=== PATIENT | female | born 1955 | race Caucasian/White ===

== ENCOUNTER 2017-08-15 10:01 | Outpatient (CLI) | payer BC | END 2017-08-15 10:02 | disposition home or self-care (01) | LOC: BICMAMMO 10:01 | PROVIDERS: ATTEND Family Medicine | DX: Z12.31 Encounter for screening mammogram for malignant neoplasm of breast (principal); R92.1 Mammographic calcification found on diagnostic imaging of breast; Z80.3 Family history of malignant neoplasm of breast | CPT/HCPCS: 77063; 77067 ==

== ENCOUNTER 2017-09-14 08:06 | Outpatient (CLI) | payer BC | END 2017-09-14 08:07 | disposition home or self-care (01) | LOC: BICULT 08:06 | PROVIDERS: ATTEND Family Medicine | DX: R94.5 Abnormal results of liver function studies (principal) | CPT/HCPCS: 76705 ==

== ENCOUNTER 2018-08-17 10:06 | Outpatient (CLI) | payer BC ==
--- NOTE | 2018-08-17 10:38 | BD ---
DEXA BONE DENSITY EXAM: HISTORY: A 63-year-old postmenopausal female for screening. COMPARISON: 12/13/2012. FINDINGS: Lumbar Spine: BMD (g/cm2) L1 0.847 T-Score: -1.3 L2 0.820 T-Score: -1.9 L3 0.847 T-Score: -2.2 L4 1.007 T-Score: -0.5 L1-L4 0.882 T-Score: -1.5 Femoral Neck: 0.679 T-Score: -1.5 Total Femur: 0.857 T-Score: -0.7 Impression: Osteopenia. This patient has a 10-year WHO fracture risk of a major osteoporotic fracture of 8.4% an d of a hip fracture of 0.9%. When compared to the prior examination, the bone density of the spine h as decreased approximately 9.5%. POS: [facility]
--- NOTE | 2018-08-17 13:05 | MMO ---
Bilateral MAMMO Bilat Screen [facility]. CLINICAL HISTORY: Patient is 63 years old and is seen for screening. The patient has the following family history of breast cancer: sister, at age 42. The patient has no personal history of cancer. VIEWS: The views performed were: bilateral craniocaudal with tomosynthesis and bilateral mediolateral oblique with tomosynthesis. FILMS COMPARED: The present examination has been compared to prior imaging studies performed at [facility] on 07/01/2015, 07/05/2016, 07/15/2016 and 08/15/2017. MAMMOGRAM FINDINGS: There are scattered fibroglandular densities. There are no suspicious masses, suspicious calcifications, or new areas of architectural distortion. IMPRESSION: THERE IS NO MAMMOGRAPHIC EVIDENCE OF MALIGNANCY. A ROUTINE FOLLOW-UP MAMMOGRAM IN 1 YEAR IS RECOMMENDED. THE RESULTS OF THIS EXAM WERE SENT TO THE PATIENT. ACR BI-RADS Category 1 - Negative MAMMOGRAPHY NOTE: 1. A negative mammogram report should not delay a biopsy if a dominant of clinically suspicious mass is present. 2. Approximately 10% to 15% of breast cancers are not detected by mammography. 3. Adenosis and dense breasts may obscure an underlying neoplasm.
== END 2018-08-17 10:07 | disposition home or self-care (01) ==
LOC: BICMAMMO 10:06
PROVIDERS: ATTEND Family Medicine
DX: Z12.31 Encounter for screening mammogram for malignant neoplasm of breast (principal); M85.89 Other specified disorders of bone density and structure, multiple sites; Z80.3 Family history of malignant neoplasm of breast
CPT/HCPCS: 77063; 77067; 77080

== ENCOUNTER 2019-03-13 14:05 | Outpatient (CLI) | payer BC ==
--- NOTE | 2019-03-13 15:01 | RAD ---
5 VIEWS MANDIBLE: Date: 03/13/2019 INDICATION: History of mandibular jaw pain. FINDINGS: No acute fracture is evident. No overt periodontal disease is noted. Visualized paranasal sinuses are clear. No air fluid level is evident. IMPRESSION: No acute osseous abnormality. POS: [facility]
== END 2019-03-13 14:06 | disposition home or self-care (01) ==
LOC: BICRAD 14:05
PROVIDERS: ATTEND Family Medicine
DX: R68.84 Jaw pain (principal)
CPT/HCPCS: 70110

== ENCOUNTER 2019-04-01 12:30 | Outpatient (CLI) | payer BC ==
--- NOTE | 2019-04-01 13:29 | CT ---
POSTCONTRAST SOFT TISSUE NECK CT: HISTORY: Palpable nodule in the right face. COMPARISON: None. FINDINGS: Visually brain parenchyma is unremarkable. Bilateral ocular lenses are appropriately located. Both globes are intact. Retrobulbar fat is preserv ed. Symmetric attenuation of the optic nerves and ocular rectus muscles. Adequate aeration visualized paranasal sinuses and mastoid air cells. Aerodigestive tract appears to be patent. No obvious mucosal abnormality. Limited evaluation the oral cavity by dental amalgam artifact. Nonspecific calcification of the left palatine tonsil. Mild fullness of the left and right lingual tonsils. Symmetric attenuation of the paraspinal muscles. Symmetric attenuation of the submandibular and parotid glands. Hyperdense nodule in the right thyroid lobe measures 1.4 x 1.5 cm. Additional subcentimeter hypodensi ties are noted in the thyroid gland Grossly the great vessels of the neck are patent. Patchy groundglass opacities in the visualized lung apices. Unremarkable upper mediastinum. No evidence of lymphadenopathy by size criteria. At the level of palpable marker, no solid or cystic masses. No lymphadenopathy. IMPRESSION: 1. No obvious masses, lymphadenopathy at the level of palpable marker in the right face. 2. Enlargement hyperdense right thyroid nodule. Further evaluation with thyroid ultrasound is recomme nded. Transcribed Date/Time: 04/01/2019 1:34 PM
[2019-04-01] MEDS ORDERED: Iopamidol 370 76% 100 ML VIAL ONE (15:51)
== END 2019-04-01 12:31 | disposition home or self-care (01) ==
LOC: BICCT 12:30
PROVIDERS: ATTEND Family Medicine
DX: K11.8 Other diseases of salivary glands (principal); E04.1 Nontoxic single thyroid nodule
CPT/HCPCS: 70491; 82565; Q9967

== ENCOUNTER 2019-04-09 13:39 | Outpatient (CLI) | payer BC ==
--- NOTE | 2019-04-09 15:45 | ULT ---
EXAM: THYROID ULTRASOUND: 04/09/19 HISTORY: Thyroid nodule. COMPARISON: None. CORRELATION: Soft tissue neck CT, 04/01/19. FINDINGS: Thyroid isthmus measures 0.4 cm. Right thyroid lobe measures 2.5 x 2.0 x 4.1 cm. Left thyroid lobe measures 1.2 x 1.5 x 4.2 cm. Thyroid nodules: There is a solid nodule in the right thyroid lobe measuring 2.0 x 1.9 x 1.8 cm. There is a second hyp oechoic nodule measuring 0.5 x 0.3 x 0.6 cm. There is a third hypoechoic nodule measuring 0.4 x 0.5 x 0.3 cm. Left thyroid lobe: There is an ill-defined solid nodule measuring 1.1 x 0.9 x 0.9 cm. IMPRESSION: Multiple solid nodules in the right and left thyroid lobes. TI-RADS level: TR4: moderately suspicious. Fine needle aspiration of the dominant solid nodule in the right thyroid lobe is recommended. POS: [facility]
== END 2019-04-09 13:40 | disposition home or self-care (01) ==
LOC: BICULT 13:39
PROVIDERS: ATTEND Otolaryngology Otolaryngic Allergy
DX: E04.2 Nontoxic multinodular goiter (principal)
CPT/HCPCS: 76536

== ENCOUNTER 2019-08-20 09:23 | Outpatient (CLI) | payer BC ==
--- NOTE | 2019-08-20 10:32 | MMO ---
Bilateral MAMMO Bilat Screen [facility]. CLINICAL HISTORY: Patient is 64 years old and is seen for screening. The patient has the following family history of breast cancer: sister, at age 42. The patient has no personal history of cancer. VIEWS: The views performed were: bilateral craniocaudal with tomosynthesis and bilateral mediolateral oblique with tomosynthesis. FILMS COMPARED: The present examination has been compared to prior imaging studies performed at [facility] on 07/05/2016, 07/15/2016, 08/15/2017 and 08/17/2018. This study has been interpreted with the assistance of computer-aided detection. MAMMOGRAM FINDINGS: There are scattered fibroglandular densities. There are benign appearing calcifications seen in both breasts. There are benign scattered densities in both breasts. There are no suspicious masses, suspicious calcifications, or new areas of architectural distortion. IMPRESSION: THERE IS NO MAMMOGRAPHIC EVIDENCE OF MALIGNANCY. A ROUTINE FOLLOW-UP MAMMOGRAM IN 1 YEAR IS RECOMMENDED. THE RESULTS OF THIS EXAM WERE SENT TO THE PATIENT. ACR BI-RADS Category 2 - Benign finding MAMMOGRAPHY NOTE: 1. A negative mammogram report should not delay a biopsy if a dominant of clinically suspicious mass is present. 2. Approximately 10% to 15% of breast cancers are not detected by mammography. 3. Adenosis and dense breasts may obscure an underlying neoplasm. Reported by: ROLDAN VALENTE MD Electonically Signed: [id number]
== END 2019-08-20 09:24 | disposition home or self-care (01) ==
LOC: BICMAMMO 09:23
PROVIDERS: ATTEND Family Medicine
DX: Z12.31 Encounter for screening mammogram for malignant neoplasm of breast (principal); Z80.3 Family history of malignant neoplasm of breast
CPT/HCPCS: 77063; 77067

== ENCOUNTER 2020-03-12 13:42 | Outpatient (CLI) | payer BC ==
--- NOTE | 2020-03-12 14:29 | MMO ---
Left Breast MAMMO Unilat Diag [facility]. CLINICAL HISTORY: Patient is 65 years old and is seen for diagnostic exam,lump or thickening in the sub-areolar region of the left breast and nipple abnormality in the left breast. The patient has the following family history of breast cancer: sister, at age 42. The patient has no personal history of cancer. VIEWS: The views performed were: left craniocaudal with tomosynthesis; left mediolateral oblique with tomosynthesis; and left mediolateral with tomosynthesis. FILMS COMPARED: The present examination has been compared to prior imaging studies performed at [facility] on 08/15/2017, 08/17/2018, 08/20/2019 and 03/12/2020. This study has been interpreted with the assistance of computer-aided detection. MAMMOGRAM FINDINGS: There are scattered fibroglandular densities. Finding 1: There are stable benign appearing calcifications seen in the left breast. Finding 2: There are no mammographic or sonographic abnormalities in the area of palpable concern. The patient is referred back to her clinician. Negative imaging findings should not preclude biopsy if clinical findings are suspicious. IMPRESSION: FINDING 2: THERE ARE NO MAMMOGRAPHIC ABNORMALITIES IN THE AREA OF PALPABLE CONCERN. THE PATIENT IS REFERRED BACK TO HER CLINICIAN. NEGATIVE IMAGING FINDINGS SHOULD NOT PRECLUDE BIOPSY IF CLINICAL FINDINGS ARE SUSPICIOUS. A ROUTINE FOLLOW-UP MAMMOGRAM IN 1 YEAR IS RECOMMENDED. THE RESULTS OF THIS EXAM WERE SENT TO THE PATIENT. ACR BI-RADS Category 2 - Benign finding MAMMOGRAPHY NOTE: 1. A negative mammogram report should not delay a biopsy if a dominant of clinically suspicious mass is present. 2. Approximately 10% to 15% of breast cancers are not detected by mammography. 3. Adenosis and dense breasts may obscure an underlying neoplasm. Reported by: REMEDIOS ERICKSON MD Electonically Signed: [id number]
--- NOTE | 2020-03-12 14:31 | ULT ---
EXAM: US Breast Limited Lt PROVIDED CLINICAL HISTORY: Inverted nipple, retroareolar palpable abnormality COMPARISON: Concurrently performed diagnostic mammogram FINDINGS: Multiple dilated ducts are demonstrated in the retroareolar region without evidence for filling defec t or mass. IMPRESSION: No sonographic abnormality is evident to correspond to the palpable finding. Negative imaging finding s should not preclude further evaluation of a clinically suspicious finding. The patient is referred back to her clinician. BI-RADS 2 -- benign findings
== END 2020-03-12 13:43 | disposition home or self-care (01) ==
LOC: BICMAMMO 13:42
PROVIDERS: ATTEND Family Medicine
DX: N64.59 Other signs and symptoms in breast (principal); N63.20 Unspecified lump in the left breast, unspecified quadrant
CPT/HCPCS: G0279

== ENCOUNTER 2020-11-02 10:34 | Outpatient (CLI) | payer BC | END 2020-11-02 10:35 | disposition home or self-care (01) | LOC: BICULT 10:34 | PROVIDERS: ATTEND Otolaryngology Otolaryngic Allergy | DX: E04.1 Nontoxic single thyroid nodule (principal) | CPT/HCPCS: 76536 ==

== ENCOUNTER 2021-09-13 09:09 | Outpatient (CLI) | payer BC | END 2021-09-13 09:10 | disposition home or self-care (01) | LOC: BICMAMMO 09:09 | PROVIDERS: ATTEND Family Medicine | DX: Z12.31 Encounter for screening mammogram for malignant neoplasm of breast (principal); Z80.3 Family history of malignant neoplasm of breast; M85.89 Other specified disorders of bone density and structure, multiple sites | CPT/HCPCS: 77063; 77067; 77080 ==

== ENCOUNTER 2022-10-13 09:35 | Outpatient (CLI) | payer BC | END 2022-10-13 09:36 | disposition home or self-care (01) | LOC: BICMAMMO 09:35 | PROVIDERS: ATTEND Family Medicine | DX: Z12.31 Encounter for screening mammogram for malignant neoplasm of breast (principal); M85.89 Other specified disorders of bone density and structure, multiple sites; Z80.3 Family history of malignant neoplasm of breast | CPT/HCPCS: 77063; 77067; 77080 ==

== ENCOUNTER 2022-12-12 08:54 | Outpatient (CLI) | payer BC | END 2022-12-12 08:55 | disposition home or self-care (01) | LOC: BICULT 08:54 | PROVIDERS: ATTEND Otolaryngology Otolaryngic Allergy | DX: E04.2 Nontoxic multinodular goiter (principal) | CPT/HCPCS: 76536 ==

== ENCOUNTER 2024-10-16 10:32 | Outpatient (CLI) | payer BC | END 2024-10-16 10:33 | disposition home or self-care (01) | LOC: BICMAMMO 10:32 | PROVIDERS: ATTEND Family Medicine | DX: Z12.31 Encounter for screening mammogram for malignant neoplasm of breast (principal); Z80.3 Family history of malignant neoplasm of breast; N63.20 Unspecified lump in the left breast, unspecified quadrant | CPT/HCPCS: 77063; 77067 ==

== ENCOUNTER 2024-12-24 09:43 | Outpatient (CLI) | payer BC | END 2024-12-24 09:44 | disposition home or self-care (01) | LOC: ULT 09:43 | PROVIDERS: ATTEND Otolaryngology Otolaryngic Allergy | DX: E04.2 Nontoxic multinodular goiter (principal) | CPT/HCPCS: 76536 ==